=== PATIENT | female | born 1950 | race Caucasian/White ===

== ENCOUNTER → 2016-09-02 21:45 | Outpatient (CLI) | payer MEDICARE, OTHER ==
[2016-01-15 13:48] VITALS: BMI 35.0
[~2016-09-02 21:45] MED LIST: AMBIEN10 MG PO; HUMALOG 30100 UNITS/; LANTUS SOL100 UNIT/1 SQ; LEVOTHYROXINE50 MCG PO; LISINOPRIL5 MG PO; OXYCODONE HCL10 MG PO; OXYCONTIN15 MG PO; PEPCID20 MG PO; PRAVACHOL40 MG PO; PROTONIX40 MG PO; ROXICODONE30 MG PO; VALIUM10 MG PO; VICTOZA0.6 MG/0.1 SQ; ZOLOFT100 MG PO
[2016-09-02 22:17] LABS: APPEARANCE CLEAR (CLEAR); BACTERIA MANY /hpf (NONE SEEN); BILIRUBIN NEGATIVE (NEGATIVE); COLOR YELLOW (YELLOW); GLUCOSE NEGATIVE (NEGATIVE); KETONE NEGATIVE (NEGATIVE); LEUKOCYTE ESTERASE 2+ (NEGATIVE); NITRITE NEGATIVE (NEGATIVE); PROTEIN 1+ mg/dL (NEGATIVE); RED CELLS - URINE 0-5 /hpf (0-5); SPECIFIC GRAVITY 1.025 (1.005-1.020); UROBILINOGEN NORMAL (NORMAL); WHITE CELLS - URINE 0-5 /hpf (0-5)
== END | disposition home or self-care (01) ==
LOC: D.LABREF 21:45
PROVIDERS: Urology
DX: R31.29 Other microscopic hematuria (principal); N39.0 Urinary tract infection, site not specified

== ENCOUNTER 2020-06-04 17:17 | Observation (INO) | payer MEDICARE, OTHER ==
[~2020-06-04] VITALS: Ht 149.9 cm; Wt 83.9 kg
--- NOTE | 2020-06-04 17:56 | NUR ---
PATIENT ARRIVED TO FLOOR. IN COVID ISOLATION.
[2020-06-04 18:10] VITALS: BP 163/73; BMI 37.4
[2020-06-04] MEDS ORDERED: IMITREX100 MG PO (18:35)
[2020-06-04] MEDS ORDERED: LISINOPRIL20 MG PO (18:37)
[2020-06-04] MEDS ORDERED: METHOCARBAMOL500 MG PO (18:38)
[2020-06-04] MEDS ORDERED: PAXIL20 MG PO (18:38)
[2020-06-04] MEDS ORDERED: REQUIP0.25 MG PO (18:39)
[2020-06-04 19:03] LABS: BASOPHILS 0.3 % (0-2); EOSINOPHILS 6.8 % (0-7); HEMATOCRIT 43.4 % (36.0-48.0); HEMOGLOBIN 14.3 g/dL (12-16); IMMATURE GRANULOCYTES 0.2 % (0-5); LYMPHOCYTE ABS# 1.68 10x3/uL (1.18-3.74); LYMPHOCYTES 25.5 % (15-50); MCH 31.3 pg (26.0-34.0); MCHC 32.9 g/dL (31.0-37.0); MEAN PLATELET VOLUME 10.8 fL (7.4-10.4); MONOCYTES 6.4 % (2-11); NEUTROPHILS 60.8 % (40-80); PLATELET COUNT 207 10x3/uL (130-400); RBC 4.57 10x6/uL (4.00-5.40); RDW 13.3 % (11.5-14.5); WBC 6.6 10x3/uL (4.8-10.8)
[2020-06-04 19:34] LABS: ANION GAP 13.9 mmol/L (8-16); CALCIUM 9.3 mg/dL (8.5-10.1); CARBON DIOXIDE 26.5 mmol/L (21.0-32.0); CREATININE - SERUM 0.9 mg/dL (0.6-1.3); POTASSIUM - SERUM 4.4 mmol/L (3.5-5.1)
[2020-06-04 19:40] LABS: ALBUMIN 3.4 g/dL (3.4-5.0); BILIRUBIN - TOTAL 0.71 mg/dL (0.2-1.3); MAGNESIUM - SERUM 2.2 mg/dL (1.8-2.4); PHOSPHOROUS 3.1 mg/dL (2.5-4.9); PROTEIN - SERUM 7.2 g/dL (6.4-8.2)
[2020-06-04 20:00] VITALS: BP 102/66
[2020-06-04 20:36] LABS: SARS-CoV-2 ANTIGEN NEGATIVE- SARS-COV-2 (NEGATIVE)
[2020-06-04 21:24] LABS: BILIRUBIN NEGATIVE (NEGATIVE); KETONE NEGATIVE (NEGATIVE); NITRITE NEGATIVE (NEGATIVE); UROBILINOGEN NORMAL mg/dL (< 2)
--- NOTE | 2020-06-05 03:40 | NUR ---
PT TOOK TELEMETERY OFF D/T NOT GETTING HER REQUIP FOR RESTLESS LEG SYNDROME WHEN SHE ASKED FOR IT. CHARGE DID PAGE PROVIDER WITH NO RESPONSE. PT CONTINUES TO REFUSE TO PUT TELE ON. HAS BEEN VERY DEMANDING AT TIMES ABOUT HER MEDICATIONS AND WANTING THEM IMMEDIATELY. WILL CONTINUE TO MONITOR.
[2020-06-05 04:00] VITALS: BP 142/72
--- NOTE | 2020-06-05 06:05 | NUR ---
PT UPSET THAT SHE NEVER GOT HER MEDICINE FOR RESTLESS LEG SYNDROME & NONE OF HER OTHER MEDS HAVE BEEN ORDERED. STATES THAT SHE PUSHED HER CALL LIGHT SEVERAL TIMES & NO ONE EVER CAME TO SEE WHAT SHE NEEDS. NEVER HEARD HER CALL LIGHT GO OFF. CONTINUES TO NOT WEAR TELEMETERY D/T SHE DOESN'T NEED IT. WILL CONTINUE TO MONITOR, STATES THAT THIS IS THE WORST HOSPITAL THAT SHE HAS EVER BEEN IN.
[2020-06-05 06:45] LABS: BASOPHILS 0.3 % (0-2); EOSINOPHILS 6.6 % (0-7); HEMATOCRIT 43.9 % (36.0-48.0); HEMOGLOBIN 14.4 g/dL (12-16); IMMATURE GRANULOCYTES 0.3 % (0-5); LYMPHOCYTE ABS# 2.67 10x3/uL (1.18-3.74); LYMPHOCYTES 41.7 % (15-50); MCH 30.9 pg (26.0-34.0); MCHC 32.8 g/dL (31.0-37.0); MCV 94.2 fL (80.0-100.0); MEAN PLATELET VOLUME 11.3 fL (7.4-10.4); MONOCYTES 8.6 % (2-11); NEUTROPHIL ABS# 2.72 10x3/uL (1.56-6.13); NEUTROPHILS 42.5 % (40-80); PLATELET COUNT 247 10x3/uL (130-400); RBC 4.66 10x6/uL (4.00-5.40); RDW 13.4 % (11.5-14.5); WBC 6.4 10x3/uL (4.8-10.8)
[2020-06-05 07:08] LABS: ALBUMIN 3.2 g/dL (3.4-5.0); ALKALINE PHOSPHATASE 156 U/L (30-120); ALT (SGPT) 49 U/L (10-68); APTT 25.9 SECONDS (22.8-39.4); BILIRUBIN - TOTAL 0.66 mg/dL (0.2-1.3); CALC OSMOLALITY 279 mosm/kg (275-300); CALCIUM 9.2 mg/dL (8.5-10.1); CARBON DIOXIDE 24.1 mmol/L (21.0-32.0); CHLORIDE - SERUM 103 mmol/L (98-107); CREATININE - SERUM 0.8 mg/dL (0.6-1.3); FERRITIN 121 ng/mL (3-244); INR 1.08 (0.85-1.17); LDH 226 U/L (81-234); MAGNESIUM - SERUM 2.3 mg/dL (1.8-2.4); POTASSIUM - SERUM 3.9 mmol/L (3.5-5.1); PRO BNP 35 pg/mL (0-125); PROTEIN - SERUM 7.9 g/dL (6.4-8.2); SODIUM 137 mmol/L (136-145); UREA NITROGEN 16 mg/dL (7-18); eGFR NON AFRICAN AMERICAN 75 mL/min (90-120)
[2020-06-05 07:09] LABS: D-DIMER-QUANTITATIVE 0.88 ug/mLFEU (0.20-0.54)
[2020-06-05 07:10] LABS: GLUCOSE 188 mg/dL (74-106)
--- NOTE | 2020-06-05 07:13 | NUR ---
RECEIVE SHIFT REPORT. IN COVID ISOLATION. PATIENT AND SPOUSE ANGRY WITH HOSPITAL STAFF HOME MEDICATIONS WERE NOT RESTARTED LAST NIGHT. PATIENT STATES SHE HAS NOT SLEPT AND HAD RESTLESS LEGS ALL NIGHT. ALANNA ADAMS SPOKE WITH ALEKSANDAR ARROYO. MEDS TO BE RESTARTED TONY THIS AM. WILL CONTINUE POC AND SAFETY PRECAUTIONS.
[2020-06-05 08:00] VITALS: BP 140/74
[2020-06-05 08:32] LABS: ERYTHROCYTE SEDIMENTATION RATE 25 mm/hr (0-30)
[2020-06-05 11:00] VITALS: BP 139/76
--- NOTE | 2020-06-05 11:49 | NUR ---
PATIENT WANTING TO BE RELEASED. HER LEGS ARE HURTING. SAID IT HAS BEEN WORSE SINCE SHE HAS BEEN ADMITTED TO THE HOSPITAL. TALKED WITH ALEKSANDAR ARROYO WHO SAID SHE WILL GET THERE WHEN SHE CAN. SHE IS CURRENTLY MAKING ROUNDS. PATIENT STATED SHE IS ANGRY THAT DR. BLEVINS DID NOT COME IN TO SEE HER. ALEKSANDAR ARROYO STATED SINCE SHE IS COVID ISOLATION ONLY ONE PERSON COMES TO SEE HER.
[2020-06-05 13:00] VITALS: Ht 149.9 cm; Wt 83.9 kg
[2020-06-05 13:33] VITALS: BP 185/66
[2020-06-05 15:00] VITALS: BP 185/66
--- NOTE | 2020-06-05 15:15 | NUR ---
DOWN FOR SCAN
--- NOTE | 2020-06-05 16:50 | NUR ---
D/C RIGHT FOREARM IV, TIP INTACT. DISCHARGE INSTRUCTIONS GIVEN VERBALLY AND HANDOUTS PROVIDED. TAKEN DOWN TO AT ED ENTRANCE VIA WHEELCHAIR. REMAINS FREE FROM INJURY.
== END 2020-06-05 17:23 | disposition home or self-care (01) ==
LOC: D.M2 17:17 → OBSVTIME 17:18 → D.M2 06-05 17:23
PROVIDERS: Family Medicine; ADMIT Family Medicine; ATTEND Family Medicine
DX: J18.9 Pneumonia, unspecified organism (principal); Z20.822 Contact with and (suspected) exposure to COVID-19; E11.40 Type 2 diabetes mellitus with diabetic neuropathy, unspecified; I10 Essential (primary) hypertension; E78.5 Hyperlipidemia, unspecified; K21.9 Gastro-esophageal reflux disease without esophagitis; Z79.4 Long term (current) use of insulin; G47.33 Obstructive sleep apnea (adult) (pediatric); G89.29 Other chronic pain; M54.9 Dorsalgia, unspecified; F41.8 Other specified anxiety disorders